=== PATIENT | female | born 1960 | race Caucasian/White ===

== ENCOUNTER 2023-03-30 12:18 | Inpatient (IN) ==
[2023-03-30] MEDS ORDERED: SODIUM CHLORIDE 0.9% 1000ML 2,000 ML IV ONE (12:47)
[2023-03-30 13:37] LABS: BUN Creatinine Ratio 19.8 (10-20); Calcium 9.1 mg/dl (8.6-10.3); Creatinine Clr Calc Pharmacy 64.8 ml/min; Est GFR (African American) 85.1 ml/min; Est GFR (Non-African American) 73.4 ml/min; Potassium 3.7 mmol/L (3.5-5.1)
[2023-03-30 13:40] LABS: Basophils # (auto) 0.03 K/uL (0-0.2); Basophils % (auto) 0.4 %; Eosinophils # (auto) 0.06 K/uL (0-0.50); Eosinophils % (auto) 0.8 %; Hematocrit (blood only) 41.9 % (37.0-47.0); Hemoglobin 14.1 g/dl (12.0-16.0); Immature Granulocytes # (auto) 0.02 K/uL (0.01-0.20); Immature Granulocytes % (auto) 0.3 %; Lymphocytes # (auto) 2.17 K/uL (1.2-3.4); Lymphocytes % (auto) 28.6 %; Mean Corpuscular Hemoglobin 29.1 pg (25.0-34.0); Mean Corpuscular Hgb Conc 33.7 g/dL (32.0-36.0); Mean Corpuscular Volume 86.6 fL (80.0-100.0); Monocytes # (auto) 0.63 K/uL (0.11-0.59); Monocytes % (auto) 8.3 %; Neutrophils # (auto) 4.69 K/uL (1.40-6.50); Neutrophils % (auto) 61.6 %; Platelet Count 206 K/uL (130-400); RDW Coefficient of Variation 13.4 % (11.5-14.5); RDW Standard Deviation 42.3 fL (36.4-46.3); Red Blood Count 4.84 M/uL (4.20-5.40)
--- NOTE | 2023-03-30 13:41 | XRay Report ---
XR chest 1V portable HISTORY: 62 years-old Female Chest pain, nonspecific COMPARISON: None TECHNIQUE: AP view of the chest FINDINGS: Cardiac mediastinal and hilar silhouettes are within normal limits. No pneumothorax, pleural effusion , airspace consolidation or pulmonary edema. Bones appear grossly intact. IMPRESSION: No acute process. ACT 112: Negative or not required by law. The above report was generated using voice recognition software. It may contain grammatical, syntax o r spelling errors. Electronically signed by: Jonnathan Valdes M.D. 03/30/2023 1:40 PM
[2023-03-30 13:42] LABS: Troponin I High Sensitivity 11.4 pg/ml (0-14)
[2023-03-30 14:08] LABS: Partial Thromboplastin Ratio 0.8; Partial Thromboplastin Time 23.8 Seconds (21.0-31.0); Prothrombin Time 11.4 Seconds (9.0-12.0)
[2023-03-30 14:15] LABS: D Dimer 5070 ug/L FEU (0-500)
[2023-03-30] MEDS ORDERED: OPTIRAY 320 500ml IV ONE (14:39)
--- NOTE | 2023-03-30 14:41 | Emergency Department Note ---
History of Present Illness General Chief Complaint: Arrhythmia/Palpitations Stated Complaint: PALPITATIONS,LUNGS SOUND "WET",DOC REF Time Seen by Provider: 03/30/23 12:38 History of Present Illness Provider Complaint: + palpitations Onset (ago): week(s) (2) Duration: + Intermittent Severity: moderate Context: + occurred during rest Arrhythmia history: no atrial fibrillation, no SVT or no on anti-coagulants Associated symptoms: + chest pain, + shortness of breath, + anxiety and + other (Patient reports she has been under a great amount of stress) Home Medications Medication Instructions Recorded Confirmed Type calcium carbonate 600 mg calcium 600 mg PO DAILY 03/30/23 03/30/23 History (1,500 mg) tablet (Calcium) cholecalciferol (vitamin D3) 25 25 mcg PO DAILY 03/30/23 03/30/23 History mcg (1,000 unit) capsule (Vitamin D3) multivitamin 1 tab PO DAILY 03/30/23 03/30/23 History Allergies Allergy/AdvReac Type Severity Reaction Status Date / Time No Known Allergies Allergy Verified 03/30/23 15:19 Past Med/Surg History Medical History No pertinent family history No pertinent past medical history Surgical History No pertinent past surgical history Social History Smoking Status: Never smoker Feels Safe at Home: Yes Physical Exam Vital Signs: Vital Signs - 24 hr 03/30/23 12:20 03/30/23 12:38 03/30/23 12:39 Temperature 36.9 C Temperature Source Temporal Artery Sc an Pulse Rate 130 H 115 H Pulse Rate [Apical ] 117 H Pulse Rate from Sp O2 Sensor Respiratory Rate 18 Respiratory Effort / Characteristics Non-Labored Sponta neous Respiratory Depth Normal Blood Pressure 187/100 H Blood Pressure [Ri ght Arm] 160/106 H Blood Pressure Willow n 129 Blood Pressure Willow n [Right Arm] 124 Blood Pressure Pos ition Sitting Pulse Oximetry 94 97 Oxygen Delivery Me thod Room Air Room Air Sepsis Recent Feve r Within 48 Hours No Sepsis New/Unexpla ined Change in Men frederic Status N/A Sepsis Action Take n by Nursing No Action Required 03/30/23 12:51 03/30/23 16:40 03/30/23 12:37 Temperature Temperature Source Pulse Rate 94 H Pulse Rate [Apical ] Pulse Rate from Sp O2 Sensor Respiratory Rate Respiratory Effort / Characteristics Respiratory Depth Blood Pressure 160/106 H Blood Pressure [Ri ght Arm] Blood Pressure Willow n 124 Blood Pressure Willow n [Right Arm] Blood Pressure Pos ition Pulse Oximetry 96 Oxygen Delivery Me thod Room Air Sepsis Recent Feve r Within 48 Hours Sepsis New/Unexpla ined Change in Men frederic Status Sepsis Action Take n by Nursing 03/30/23 12:37 03/30/23 12:40 03/30/23 12:50 Temperature Temperature Source Pulse Rate 112 H 110 H 103 H Pulse Rate [Apical ] Pulse Rate from Sp O2 Sensor 114 H 108 H 102 H Respiratory Rate 15 12 15 Respiratory Effort / Characteristics Respiratory Depth Blood Pressure Blood Pressure [Ri ght Arm] Blood Pressure Willow n Blood Pressure Willow n [Right Arm] Blood Pressure Pos ition Pulse Oximetry 98 98 98 Oxygen Delivery Me thod Sepsis Recent Feve r Within 48 Hours Sepsis New/Unexpla ined Change in Men frederic Status Sepsis Action Take n by Nursing 03/30/23 13:00 03/30/23 13:10 03/30/23 13:20 Temperature Temperature Source Pulse Rate 114 H 110 H 115 H Pulse Rate [Apical ] Pulse Rate from Sp O2 Sensor 115 H 110 H 114 H Respiratory Rate 11 L 15 23 Respiratory Effort / Characteristics Respiratory Depth Blood Pressure Blood Pressure [Ri ght Arm] Blood Pressure Willow n Blood Pressure Willow n [Right Arm] Blood Pressure Pos ition Pulse Oximetry 95 96 95 Oxygen Delivery Me thod Sepsis Recent Feve r Within 48 Hours Sepsis New/Unexpla ined Change in Men frederic Status Sepsis Action Take n by Nursing 03/30/23 13:30 03/30/23 13:40 03/30/23 13:50 Temperature Temperature Source Pulse Rate 102 H 111 H 104 H Pulse Rate [Apical ] Pulse Rate from Sp O2 Sensor 103 H 111 H 107 H Respiratory Rate 19 18 17 Respiratory Effort / Characteristics Respiratory Depth Blood Pressure Blood Pressure [Ri ght Arm] Blood Pressure Willow n Blood Pressure Willow n [Right Arm] Blood Pressure Pos ition Pulse Oximetry 95 94 95 Oxygen Delivery Me thod Sepsis Recent Feve r Within 48 Hours Sepsis New/Unexpla ined Change in Men frederic Status Sepsis Action Take n by Nursing 03/30/23 14:00 03/30/23 14:10 03/30/23 14:20 Temperature Temperature Source Pulse Rate 100 H 103 H 98 H Pulse Rate [Apical ] Pulse Rate from Sp O2 Sensor 101 H 102 H 97 H Respiratory Rate 15 15 17 Respiratory Effort / Characteristics Respiratory Depth Blood Pressure Blood Pressure [Ri ght Arm] Blood Pressure Willow n Blood Pressure Willow n [Right Arm] Blood Pressure Pos ition Pulse Oximetry 98 96 96 Oxygen Delivery Me thod Sepsis Recent Feve r Within 48 Hours Sepsis New/Unexpla ined Change in Men frederic Status Sepsis Action Take n by Nursing 03/30/23 14:30 03/30/23 14:53 03/30/23 15:00 Temperature Temperature Source Pulse Rate 99 H 112 H 113 H Pulse Rate [Apical ] Pulse Rate from Sp O2 Sensor 100 H 114 H 113 H Respiratory Rate 14 18 15 Respiratory Effort / Characteristics Respiratory Depth Blood Pressure Blood Pressure [Ri ght Arm] Blood Pressure Willow n Blood Pressure Willow n [Right Arm] Blood Pressure Pos ition Pulse Oximetry 98 98 98 Oxygen Delivery Me thod Sepsis Recent Feve r Within 48 Hours Sepsis New/Unexpla ined Change in Men frederic Status Sepsis Action Take n by Nursing 03/30/23 15:10 03/30/23 15:20 03/30/23 15:30 Temperature Temperature Source Pulse Rate 108 H 107 H 122 H Pulse Rate [Apical ] Pulse Rate from Sp O2 Sensor 109 H 106 H 108 H Respiratory Rate 14 15 22 Respiratory Effort / Characteristics Respiratory Depth Blood Pressure Blood Pressure [Ri ght Arm] Blood Pressure Willow n Blood Pressure Willow n [Right Arm] Blood Pressure Pos ition Pulse Oximetry 97 98 93 Oxygen Delivery Me thod Sepsis Recent Feve r Within 48 Hours Sepsis New/Unexpla ined Change in Men frederic Status Sepsis Action Take n by Nursing 03/30/23 15:40 03/30/23 15:50 03/30/23 16:00 Temperature Temperature Source Pulse Rate 107 H 113 H 104 H Pulse Rate [Apical ] Pulse Rate from Sp O2 Sensor 107 H 110 H 104 H Respiratory Rate 13 17 21 Respiratory Effort / Characteristics Respiratory Depth Blood Pressure Blood Pressure [Ri ght Arm] Blood Pressure Willow n Blood Pressure Willow n [Right Arm] Blood Pressure Pos ition Pulse Oximetry 96 97 97 Oxygen Delivery Me thod Sepsis Recent Feve r Within 48 Hours Sepsis New/Unexpla ined Change in Men frederic Status Sepsis Action Take n by Nursing 03/30/23 16:10 03/30/23 16:20 03/30/23 16:30 Temperature Temperature Source Pulse Rate 100 H 97 H 101 H Pulse Rate [Apical ] Pulse Rate from Sp O2 Sensor 100 H 94 H 103 H Respiratory Rate 13 16 15 Respiratory Effort / Characteristics Respiratory Depth Blood Pressure Blood Pressure [Ri ght Arm] Blood Pressure Willow n Blood Pressure Willow n [Right Arm] Blood Pressure Pos ition Pulse Oximetry 96 98 96 Oxygen Delivery Me thod Sepsis Recent Feve r Within 48 Hours Sepsis New/Unexpla ined Change in Men frederic Status Sepsis Action Take n by Nursing 03/30/23 16:40 03/30/23 16:50 03/30/23 17:00 Temperature Temperature Source Pulse Rate 99 H 96 H 103 H Pulse Rate [Apical ] Pulse Rate from Sp O2 Sensor 98 H 96 H 102 H Respiratory Rate 10 L 13 22 Respiratory Effort / Characteristics Respiratory Depth Blood Pressure Blood Pressure [Ri ght Arm] Blood Pressure Willow n Blood Pressure Willow n [Right Arm] Blood Pressure Pos ition Pulse Oximetry 97 96 98 Oxygen Delivery Me thod Sepsis Recent Feve r Within 48 Hours Sepsis New/Unexpla ined Change in Men frederic Status Sepsis Action Take n by Nursing Physical Exam: Physical Exam HENT: Exam performed. -Head: Normocephalic and atraumatic. -Right Ear: External ear normal. No mastoid erythema -Left Ear: External ear normal. No mastoid erythema EYES: Conjunctivae and EOM are normal. Right eye exhibits no discharge. Left eye exhibits no discharge. No scleral icterus. NECK: Normal range of motion. Neck supple. No JVD present. No rigidity. No tracheal deviation and normal range of motion present. CV: Tachycardic rate, regular rhythm, normal heart sounds and intact distal pulses. There is no peripheral edema. Palpable radial pulses bue. PULM/CHEST: Effort normal and breath sounds normal. No respiratory distress. No stridor. She has no wheezes. She has no rales. MUSC/SKEL: Normal range of motion. There is no peripheral edema, tenderness or deformity. LYMPH: No cervical adenopathy. NEURO: Motor and sensation grossly intact. SKIN: Skin is warm and dry. She is not diaphoretic. PSYCH: She has a normal mood and affect. Behavior is normal. Judgment and thought content normal. Course Course 1238: The patient was evaluated in room A9. A complete history and physical exam was performed Cardiac monitoring: An order was placed for continuous cardiac monitoring. The monitor shows a rate of 120 with sinus tachycardia rhythm interpreted by 1545: Patient remains tachycardic. Labs are within normal limits with exception of elevated D-dimer. CTA of the chest shows extensive bilateral pulmonary emboli. [facility]. Administered Medications Heparin Sodium/Dextrose (Heparin Sodium/Dextrose) 25,000 units in 500 mls @ 21 mls/hr IV .[id number] [facility]; Protocol Stop: 04/29/23 15:59 Last Admin: 03/30/23 16:01 Dose: 1,050 units/hr, 21 mls/hr Documented By: JEFF Co-signed By: CHAU Discontinued Medications Heparin Sodium (Porcine) (Heparin Sod (Porcine) 1000 Unit/Ml) 5,000 units IV NOW ONE Stop: 03/30/23 16:01 Last Admin: 03/30/23 16:01 Dose: 5,000 units Documented By: JEFF Co-signed By: CHAU Heparin Sodium/Dextrose (Heparin Iv Adult Wt-Based Standard With Bolus Protocol) 1 each IV Q15M [facility]; Protocol Stop: 03/30/23 16:31 Last Admin: 03/30/23 16:57 Dose: Not Given Documented By: JEFF Sodium Chloride (Nss 1000ml) 2,000 mls @ 999 mls/hr IV .Q2H1M ONE Stop: 03/30/23 14:47 Last Infusion: 03/30/23 14:52 Dose: 0 mls/hr Documented By: Admin: 03/30/23 12:51 Dose: 999 mls/hr Documented By: JEFF Ioversol (Optiray 320 500ml) 108 ml IV ONCE ONE Stop: 03/30/23 14:40 Last Admin: 03/30/23 14:40 Dose: 108 ml Documented By: OLIVIA Medical Decision Making Laboratory Data Attestation: I reviewed the patient's lab results. 03/30/23 12:35 03/30/23 12:35 Lab Results 03/30/23 03/30/23 03/30/23 Range/Units 12:35 12:35 12:35 WBC 7.60 (4.8-10.8) K/ul RBC 4.84 (4.20-5.40) M/uL Hgb 14.1 (12.0-16.0) g/dl Hct 41.9 (37.0-47.0) % MCV 86.6 (80.0-100.0) fL MCH 29.1 (25.0-34.0) pg MCHC 33.7 (32.0-36.0) g/dL RDW Std Deviation 42.3 (36.4-46.3) fL RDW Coeff of Divya 13.4 (11.5-14.5) % Plt Count 206 (130-400) K/uL MPV 10.0 (9.4-12.4) fL Immature Gran % (Auto) 0.3 % Neut % (Auto) 61.6 % Lymph % (Auto) 28.6 % [place] % (Auto) 8.3 % Eos % (Auto) 0.8 % Baso % (Auto) 0.4 % Neut # (Auto) 4.69 (1.40-6.50) K/uL Lymph # (Auto) 2.17 (1.2-3.4) K/uL [place] # (Auto) 0.63 H (0.11-0.59) K/uL Eos # (Auto) 0.06 (0-0.50) K/uL Baso # (Auto) 0.03 (0-0.2) K/uL Immature Gran # (Auto) 0.02 (0.01-0.20) K/uL PT 11.4 (9.0-12.0) Seconds INR 1.0 (0.9-1.1) APTT 23.8 (21.0-31.0) Seconds PTT Ratio 0.8 D-Dimer 5070 H* (0-500) ug/L FEU Sodium 141 (136-145) mmol/L Potassium 3.7 (3.5-5.1) mmol/L Chloride 109 H (98-107) mmol/L Carbon Dioxide 22 (21-32) mmol/L Anion Gap 10 (3-11) BUN 17 (6-23) mg/dl Creatinine 0.86 (0.6-1.2) mg/dl Est Cr Clr Drug Dosing 64.8 ml/min Est GFR ( Amer) 85.1 ml/min Est GFR (Non-Af Amer) 73.4 ml/min BUN/Creatinine Ratio 19.8 (10-20) Glucose 101 H (70-99(Fasting)) mg/dl Calcium 9.1 (8.6-10.3) mg/dl Troponin I High Sens 11.4 (0-14) pg/ml Lipase 11 (11-82) U/L SARS-CoV-2, RNA, NAAT (NEGATIVE) 03/30/23 Range/Units 16:00 WBC (4.8-10.8) K/ul RBC (4.20-5.40) M/uL Hgb (12.0-16.0) g/dl Hct (37.0-47.0) % MCV (80.0-100.0) fL MCH (25.0-34.0) pg MCHC (32.0-36.0) g/dL RDW Std Deviation (36.4-46.3) fL RDW Coeff of Divya (11.5-14.5) % Plt Count (130-400) K/uL MPV (9.4-12.4) fL Immature Gran % (Auto) % Neut % (Auto) % Lymph % (Auto) % [place] % (Auto) % Eos % (Auto) % Baso % (Auto) % Neut # (Auto) (1.40-6.50) K/uL Lymph # (Auto) (1.2-3.4) K/uL [place] # (Auto) (0.11-0.59) K/uL Eos # (Auto) (0-0.50) K/uL Baso # (Auto) (0-0.2) K/uL Immature Gran # (Auto) (0.01-0.20) K/uL PT (9.0-12.0) Seconds INR (0.9-1.1) APTT (21.0-31.0) Seconds PTT Ratio D-Dimer (0-500) ug/L FEU Sodium (136-145) mmol/L Potassium (3.5-5.1) mmol/L Chloride (98-107) mmol/L Carbon Dioxide (21-32) mmol/L Anion Gap (3-11) BUN (6-23) mg/dl Creatinine (0.6-1.2) mg/dl Est Cr Clr Drug Dosing ml/min Est GFR ( Amer) ml/min Est GFR (Non-Af Amer) ml/min BUN/Creatinine Ratio (10-20) Glucose (70-99(Fasting)) mg/dl Calcium (8.6-10.3) mg/dl Troponin I High Sens (0-14) pg/ml Lipase (11-82) U/L SARS-CoV-2, RNA, NAAT NEGATIVE (NEGATIVE) Imaging Data My Impression: Chest x-ray negative. Airway clear. No pneumothorax. No consolidation. No cardiomegaly or cephalization.. No free air under the diaphragm. No fractures of the skeletal structures. Radiologist's Impression: Chest X-Ray 03/30/23 12:47 XR chest 1V portable HISTORY: 62 years-old Female Chest pain, nonspecific COMPARISON: None TECHNIQUE: AP view of the chest FINDINGS: Cardiac mediastinal and hilar silhouettes are within normal limits. No pneumothorax, pleural effusion, airspace consolidation or pulmonary edema. Bones appear grossly intact. IMPRESSION: No acute process. ACT 112: Negative or not required by law. The above report was generated using voice recognition software. It may contain grammatical, syntax or spelling errors. Electronically signed by: Jonnathan Valdes M.D. 03/30/2023 1:40 PM Chest X-Ray 03/30/23 12:47 XR chest 1V portable HISTORY: 62 years-old Female Chest pain, nonspecific COMPARISON: None TECHNIQUE: AP view of the chest FINDINGS: Cardiac mediastinal and hilar silhouettes are within normal limits. No pneumothorax, pleural effusion, airspace consolidation or pulmonary edema. Bones appear grossly intact. IMPRESSION: No acute process. ACT 112: Negative or not required by law. The above report was generated using voice recognition software. It may contain grammatical, syntax or spelling errors. Electronically signed by: Jonnathan Valdes M.D. 03/30/2023 1:40 PM Chest CTA 03/30/23 14:21 CT ANGIOGRAPHY OF THE CHEST, PULMONARY EMBOLUS PROTOCOL CLINICAL HISTORY: Shortness of breath. Evaluate for pulmonary embolus. COMPARISON STUDY: Chest radiograph performed earlier today. TECHNIQUE: Following IV administration of 108 mL of Optiray, helical axial images of the chest were obtained utilizing the pulmonary embolus protocol. Maximal intensity projections and sagittal and coronal reformats were viewed on an independent 3D workstation. IV contrast was administered without complication. Automated exposure control was utilized for the study. A dose lowering technique was utilized adhering to the principles of ALARA. CT DOSE: 355.33 mGy.cm FINDINGS: Extensive bilateral pulmonary emboli are noted including emboli within the distal right and left pulmonary arteries. There are also emboli within the lobar and segmental vessels of both lungs. There is no definite CT evidence for right heart strain. There is no pericardial effusion. No thoracic lymphadenopathy is present. Central airways are patent. Lungs are suboptimally assessed due to respiratory motion. A 2.7 cm left upper lobe groundglass opacity on axial image 142 is noted. This contains a 6 mm nodular component which may reflect tree-in-bud nodules. Otherwise, lungs are clear. There is no pneumothorax or pleural effusion. IMPRESSION: 1. Extensive bilateral pulmonary emboli, as described above. No CT evidence for right heart strain. No pulmonary infarct. 2. 2.7 cm groundglass opacity within left upper lobe which contains a 6 mm nodular component. An infectious or inflammatory etiology is favored. A pulmonary lesion could appear similar. A follow-up chest CT in one month to ensure resolution is recommended. ACT 112: Positive. There are findings on this exam that require communication between the performing entity and the patient following Patient Test Result Information Act ([place] Act 112) guidelines. Electronically signed by: Dominic Nelson M.D. 03/30/2023 3:22 PM ECG Data Attestation: I personally reviewed and interpreted this ECG as follows: Indication: palpitations Rate (beats per minute): 118 Rhythm: sinus tachycardia Findings: no ST depression, no ST elevation or no prolonged QT Additional Comments: QRS 70 MDM Narrative 1238: The patient was evaluated in room A9. A complete history and physical exam was performed Cardiac monitoring: An order was placed for continuous cardiac monitoring. The monitor shows a rate of 120 with sinus tachycardia rhythm interpreted by me 1545: Patient remains tachycardic. Labs are within normal limits with exception of elevated D-dimer. CTA of the chest shows extensive bilateral pulmonary emboli. Patient be started on heparin [facility] Impression & Plan Pulmonary emboli Critical Care Time Critical Care Time: Yes Total Critical Care Time: 45 I have personally spent greater than 45 minutes of critical care time in the direct management of this patient. This includes bedside care, interpretation of diagnostic studies, and testing, discussion with consultants, patient, and family members, and other required patient management activities. This 45 minutes is in excess of all separately billable procedures. Discharge Plan Visit Data Chief Complaint: Arrhythmia/Palpitations Stated Complaint: PALPITATIONS,LUNGS SOUND "WET",DOC REF ED Provider: Goyo Seay Discharge Problem: Pulmonary emboli Patient Disposition: Admitted As Inpatient Forms Stand Alone Forms: [facility] Prescriptions Prescriptions: No Action multivitamin Tablet 1 tab PO DAILY calcium carbonate [Calcium 600] 600 mg calcium (1,500 mg) Tablet 600 mg PO DAILY cholecalciferol (vitamin D3) [Vitamin D3] 25 mcg (1,000 unit) Capsule 25 mcg PO DAILY Referrals Referrals: María Martinez MD [Primary Care Provider] -
--- NOTE | 2023-03-30 15:24 | CT Scan Report ---
CT ANGIOGRAPHY OF THE CHEST, PULMONARY EMBOLUS PROTOCOL CLINICAL HISTORY: Shortness of breath. Evaluate for pulmonary embolus. COMPARISON STUDY: Chest radiograph performed earlier today. TECHNIQUE: Following IV administration of 108 mL of Optiray, helical axial images of the chest were o btained utilizing the pulmonary embolus protocol. Maximal intensity projections and sagittal and cor onal reformats were viewed on an independent 3D workstation. IV contrast was administered without co mplication. Automated exposure control was utilized for the study. A dose lowering technique was ut ilized adhering to the principles of ALARA. CT DOSE: 355.33 mGy.cm FINDINGS: Extensive bilateral pulmonary emboli are noted including emboli within the distal right an d left pulmonary arteries. There are also emboli within the lobar and segmental vessels of both lungs . There is no definite CT evidence for right heart strain. There is no pericardial effusion. No thora cic lymphadenopathy is present. Central airways are patent. Lungs are suboptimally assessed due to re spiratory motion. A 2.7 cm left upper lobe groundglass opacity on axial image 142 is noted. This cont ains a 6 mm nodular component which may reflect tree-in-bud nodules. Otherwise, lungs are clear. Ther e is no pneumothorax or pleural effusion. IMPRESSION: 1. Extensive bilateral pulmonary emboli, as described above. No CT evidence for right heart strain. N o pulmonary infarct. 2. 2.7 cm groundglass opacity within left upper lobe which contains a 6 mm nodular component. An infe ctious or inflammatory etiology is favored. A pulmonary lesion could appear similar. A follow-up ches t CT in one month to ensure resolution is recommended. ACT 112: Positive. There are findings on this exam that require communication between the performing entity and the patient following Patient Test Result Information Act ([place] Act 112) guidelines. Electronically signed by: Dominic Nelson M.D. 03/30/2023 3:22 PM
[2023-03-30] MEDS ORDERED: Heparin IV Adult Wt-Based Standard WITH Bolus Protocol IV STA (15:45)
[2023-03-30] MEDS ORDERED: HEPARIN SOD (PORCINE) 1000 UNIT/ML IV ONE ×2 (16:00)
[2023-03-30] MEDS ORDERED: HEPARIN SODIUM/DEXTROSE 25,000 UNITS/500 ML BAG IV SCH (16:00)
--- NOTE | 2023-03-30 16:49 | History & Physical Report ---
Date of Service March 30, 2023 Assessment & Plan (1) Pulmonary emboli: Plan: Possibly provoked with recent long haul journeys although is US venous doppler negative unlikely exacerbated by this. IV haprin standard IV bolus and drip. Duration at least 6 months Consider hypercoagulable workup pending US venous doppler if thought to be unprovoked (2) Abnormal CT scan, chest: Plan: 2.7 cm groundglass opacity within left upper lobe which contains a 6 mm nodular component. Repeat CT chest in 1 month recommended for resolution. However most likely downstream effect of pulonary embolism Procalcitonin negative Plan VTE Prophylaxis - IV heparin Diet - regular Disposition - med/tele Admission and Anticipated Discharge Date Admission Date: March 30, 2023 History of Present Illness Chief Complaint: Shortness of breath, tachycardia Primary Care Provider: María Martinez MD Deja Diez is a 62 year old female who presents to the ER on advice of her PCP due to heart racing and shortness of breath. She reports shortness of breath on exertion for the last 2 weeks especially but with hindsight she believes this may have been going on for longer. No chest pain although she notes maybe some discomfort no worse on inspiration. Associated nausea. No diaphoresis. Palpitations for the last 2 weeks. No orthopnea, PND, presyncope, fever, chills, nasal congestion, sinus pain, cough. In the ER she was noted to have an elevated d-dimer and subsequent CT for PE confirmed bilateral pulmonary emboli. She has no personal or family history of pulmonary emboli or clotting disorders. No calf pain. No recent surgeries. She does note a [address] car journey to [place] about 8 weeks ago with 1 week in between. Since then she has also been driving to [place] for the last 3-4 weekends with 3 days in between journeys. No recent COVID infection. Allergies Allergy/AdvReac Type Severity Reaction Status Date / Time No Known Allergies Allergy Verified 03/30/23 15:19 Home Medications Medication Instructions Recorded Confirmed Type calcium carbonate 600 mg calcium 600 mg PO DAILY 03/30/23 03/30/23 History (1,500 mg) tablet (Calcium) cholecalciferol (vitamin D3) 25 25 mcg PO DAILY 03/30/23 03/30/23 History mcg (1,000 unit) capsule (Vitamin D3) multivitamin 1 tab PO DAILY 03/30/23 03/30/23 History Past Med/Surg History Medical History No pertinent family history No pertinent past medical history Surgical History No pertinent past surgical history Social History Smoking Status: Never smoker Hx Alcohol Use: Yes Hx Substance Use: No Preferred Language: Armenian Communication Ability: Effective 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 Beliefs That Will Affect Care: None Current Living Situation: Spouse Feels Safe at Home: Yes Safety Concerns: Feels Safe At This Time Assistive Devices: Glasses Review of Systems Review of Systems: All systems reviewed & are unremarkable except as noted in HPI & below Physical Exam Constitutional: WD/WN, vitals as above Eyes: + anicteric sclerae; normal pupil size ENMT: external ear and nose normal, oropharynx normal Neck: trachea midline, no thyromegaly Respiratory: normal respiratory effort, lungs clear to auscultation Cardiovascular: RRR, no murmur, no edema Gastrointestinal (Abdomen): normal bowel sounds, soft, nontender, no hepatosplenomegaly Musculoskeletal: no cyanosis or clubbing, extremities motor strength 5/5 Skin: no rashes, warm and dry Neurologic: moves all extremities and awake; no focal motor deficits and not confused Psychiatric: A+Ox3, euthymic affect Genitourinary: no CVA tenderness Results & Data Results & Data Vital Signs (Past 12 Hours) Vital Signs Temp Pulse Pulse Resp BP BP Pulse Ox 03/30/23 16:40 94 H 03/30/23 12:51 96 03/30/23 12:39 117 H 160/106 H 97 03/30/23 12:38 115 H 03/30/23 12:20 36.9 C 130 H 18 187/100 H 94 O2 Del Method 03/30/23 16:40 03/30/23 12:51 Room Air 03/30/23 12:39 Room Air 03/30/23 12:38 03/30/23 12:20 Room Air Laboratory Results Abnormal lab results 03/30/23 03/30/23 03/30/23 Range/Units 12:35 12:35 12:35 [place] # (Auto) 0.63 H (0.11-0.59) K/uL D-Dimer 5070 H* (0-500) ug/L FEU Chloride 109 H (98-107) mmol/L Glucose 101 H (70-99(Fasting)) mg/dl Diagnostic Findings XR chest 1V portable HISTORY: 62 years-old Female Chest pain, nonspecific COMPARISON: None TECHNIQUE: AP view of the chest FINDINGS: Cardiac mediastinal and hilar silhouettes are within normal limits. No pneumothorax, pleural effusion, airspace consolidation or pulmonary edema. Bones appear grossly intact. IMPRESSION: No acute process. Medications Administered ER Medications Given: NSS 1L bolus (2nd L discontinued) Heparin Standard bolus and drip ECG Rate (beats per minute): 118 Rhythm: sinus tachycardia Findings: no acute ischemic change Comparison ECG Date: no prior available Code Status & VTE Plan Code Status Full VTE Prophylaxis Plan VTE Prophylaxis will be ordered: Yes PG Care Time/CCT Total # of Minutes Spent Total Time Spent with Patient: Total time spent is greater than 50% in coordination of care (as documented) at patient's floor/unit and/or counseling patient: Coding Level of Care Code 27400 INT INP/OBS CARE 2MIN Diagnoses Pulmonary emboli I26.99 Acute cor pulmonale presence: without acute cor pulmonale Chronicity: acute Pulmonary embolism type: unspecified Abnormal CT scan, chest R93.89 (1) Pulmonary emboli Acute cor pulmonale presence: without acute cor pulmonale Chronicity: acute Pulmonary embolism type: unspecified Qualified Code(s): I26.99 - Other pulmo nary embolism without acute cor pulmonale
[2023-03-30] MEDS: Heparin IV Adult Wt-Based Standard WITH Bolus Protocol IV SCH ×2 (16:57→18:03)
[2023-03-30] MEDS ORDERED: ONDANSETRON INJ 2 MG/ML 2 ML VIAL IV PRN (18:43)
[2023-03-30] MEDS ORDERED: ACETAMINOPHEN 325 MG TAB PO PRN (18:43)
--- NOTE | 2023-03-30 21:14 | Ultrasound Report ---
BILATERAL LOWER EXTREMITY VENOUS DOPPLER CLINICAL HISTORY: Pulmonary emboli, ?DVT to determine if provoked/un COMPARISON STUDY: No previous studies for comparison. TECHNIQUE: Sonography of the deep venous system of the bilateral lower extremities was performed. Co mpression and augmentation were evaluated. FINDINGS: There is no deep venous thrombus within the right lower extremity. Note is made of nonoccl usive deep venous thrombus within the left popliteal vein. No additional sites of deep venous thrombu s are present. IMPRESSION: Deep venous thrombus within the left popliteal vein. No additional sites of deep venous t hrombus within the lower chest demonstrate. ACT 112: Negative or not required by law. Electronically signed by: Dominic Nelson M.D. 03/30/2023 9:12 PM
[2023-03-30 22:35] LABS: Partial Thromboplastin Ratio 2.2
[2023-03-30 23:01] LABS: Partial Thromboplastin Time 61.6 Seconds (21.0-31.0)
[2023-03-31 07:08] LABS: Basophils # (auto) 0.03 K/uL (0-0.2); Basophils % (auto) 0.5 %; Eosinophils # (auto) 0.09 K/uL (0-0.50); Eosinophils % (auto) 1.4 %; Hematocrit (blood only) 42.3 % (37.0-47.0); Hemoglobin 14.2 g/dl (12.0-16.0); Immature Granulocytes # (auto) 0.02 K/uL (0.01-0.20); Immature Granulocytes % (auto) 0.3 %; Lymphocytes # (auto) 2.57 K/uL (1.2-3.4); Lymphocytes % (auto) 40.7 %; Mean Corpuscular Hemoglobin 29.1 pg (25.0-34.0); Mean Corpuscular Hgb Conc 33.6 g/dL (32.0-36.0); Mean Corpuscular Volume 86.7 fL (80.0-100.0); Mean Platelet Volume 9.6 fL (9.4-12.4); Monocytes # (auto) 0.47 K/uL (0.11-0.59); Monocytes % (auto) 7.4 %; Neutrophils # (auto) 3.13 K/uL (1.40-6.50); Neutrophils % (auto) 49.7 %; Platelet Count 177 K/uL (130-400); RDW Coefficient of Variation 13.5 % (11.5-14.5); RDW Standard Deviation 42.8 fL (36.4-46.3); Red Blood Count 4.88 M/uL (4.20-5.40); White Blood Count 6.31 K/ul (4.8-10.8)
[2023-03-31 07:29] LABS: BUN Creatinine Ratio 18.2 (10-20); Calcium 8.9 mg/dl (8.6-10.3); Creatinine Clr Calc Pharmacy 72.4 ml/min; Est GFR (African American) 97.3 ml/min; Est GFR (Non-African American) 83.9 ml/min; Potassium 4.3 mmol/L (3.5-5.1)
[2023-03-31 07:57] LABS: Partial Thromboplastin Time 56.6 Seconds (21.0-31.0)
--- NOTE | 2023-03-31 08:05 | Hospitalist Progress Note ---
Date of Service March 31, 2023 Assessment & Plan (1) Pulmonary emboli: Plan: Possibly provoked with recent long car trips IV heprin standard IV bolus and drip. Once tachycardia resolves consider transition Eliquis therapy Duration at least 6 months (2) Abnormal CT scan, chest: Plan: 2.7 cm groundglass opacity within left upper lobe which contains a 6 mm nodular component. Repeat CT chest in 1 month recommended for resolution. However most likely downstream effect of pulonary embolism Procalcitonin negative Plan VTE Prophylaxis - IV heparin Diet - regular Disposition - med/tele Admission and Anticipated Discharge Date Admission Date: March 30, 2023 Subjective Patient admitted admitted with concern for provoked DVT/PE started on heparin drip., Typically takes no medications. Small groundglass changes noted on CTA of chest patient has never been a smoker Results & Data Results & Data Vital Signs (Past 12 Hours) Vital Signs Temp Pulse Pulse Resp BP Pulse Ox O2 Del Method 03/31/23 07:47 97.9 F 94 H 18 135/86 98 Room Air 03/31/23 02:16 97.7 F 96 H 20 127/81 95 Room Air 03/30/23 22:00 97 H 03/30/23 22:46 97.5 F L 81 18 151/87 H 97 Room Air 03/30/23 22:00 Room Air PG Care Time/CCT Total # of Minutes Spent Total Time Spent with Patient: Total time spent is greater than 50% in coordination of care (as documented) at patient's floor/unit and/or counseling patient: Coding Diagnoses Pulmonary emboli I26.99 Acute cor pulmonale presence: without acute cor pulmonale Chronicity: acute Pulmonary embolism type: unspecified Abnormal CT scan, chest R93.89 (1) Pulmonary emboli Acute cor pulmonale presence: without acute cor pulmonale Chronicity: acute Pulmonary embolism type: unspecified Qualified Code(s): I26.99 - Other pulmonary embolism without acute cor pulmonale
[2023-03-31 11:38] VITALS: TEMP 98.2; O2SAT 97
[2023-03-31] MEDS ORDERED: HEPARIN STOP ORDER ONE (12:45)
[2023-03-31] MEDS ORDERED: APIXABAN 5 MG TABLET PO ONE (12:45)
[2023-03-31] MEDS: Heparin IV Adult Wt-Based Standard WITH Bolus Protocol IV SCH (13:13)
[2023-03-31 14:47] VITALS: BP 135/86
[2023-03-31 15:36] VITALS: PULSE 106
--- NOTE | 2023-03-31 18:01 | Discharge Summary ---
Date of Service March 31, 2023 Admission HPI Per Admitting Provider Deja Diez is a 62 year old female who presents to the ER on advice of her PCP due to heart racing and shortness of breath. She reports shortness of breath on exertion for the last 2 weeks especially but with hindsight she believes this may have been going on for longer. No chest pain although she notes maybe some discomfort no worse on inspiration. Associated nausea. No diaphoresis. Palpitations for the last 2 weeks. No orthopnea, PND, presyncope, fever, chills, nasal congestion, sinus pain, cough. In the ER she was noted to have an elevated d-dimer and subsequent CT for PE confirmed bilateral pulmonary emboli. She has no personal or family history of pulmonary emboli or clotting disorders. No calf pain. No recent surgeries. She does note a [address] car journey to [place] about 8 weeks ago with 1 w [place] in between. Since then she has also been driving to [place] for the last 3- 4 weekends with 3 days in between journeys. No recent COVID infection. Principal Diagnosis Pulmonary embolism and deep venous thrombosis Pulmonary nodule recommend follow-up in 1 month Discharge Exam Patient is awake and alert she has no shortness of breath she has no leg discomfort Discharge Data Allergies Allergy/AdvReac Type Severity Reaction Status Date / Time No Known Allergies Allergy Verified 03/30/23 15:19 Consultations 03/30/23 15:46 ED Decision to Admit Stat Ordered Studies 03/30/23 14:21 CT angio chest PE protocol Stat 03/30/23 17:29 US venous doppler LE Stat Hospital Course (1) Pulmonary emboli: Possibly provoked with recent long car trips IV heprin standard IV bolus and drip. transition Eliquis therapy Duration at least 6 months (2) Abnormal CT scan, chest: 2.7 cm groundglass opacity within left upper lobe which contains a 6 mm nodular component. Repeat CT chest in 1 month recommended for resolution. However most likely downstream effect of pulonary embolism Procalcitonin negative Total Time Total Time Spent Total Time Spent (In Minutes): It required greater than 30 minutes to prepare this patient for discharge Discharge Plan Discharge Items Patient Disposition: Home - Self-Care Reason For Visit: PULMONARY EMBOLI Discharge Diagnosis: pulmonary embolism Activity: Per Instructions section Non-emergency contact: Primary Care Provider Call non-emergency contact if: your symptoms worsen Follow-up/Referrals: María Martinez MD [Primary Care Provider] - 04/03/23 2:05 pm (with Kristie Werner ) Diet: Regular Addtl Attending Provider Instructions: Medication Instructions: Your condition is typically treated with an anticoagulant. Anticoagulants will thin your blood to help prevent new clots. * You should take her medication exactly as directed. * Never skip a dose. * Never take a double dose. If you miss a dose, take it as soon as you remember. Call your Primary Care doctor if you experience any of the following: * Swelling or Pain in your leg * Sudden, continuous pain deep in a muscle * Pain that worsens when you are active or when you stand still for a long time * Chest Pain * Sudden Shortness of Breath * Rapid or pounding heart beat * Fainting * Dizziness * Cough with blood or bloody sputum * Sweating more than normal * Bruises * Heavy or uncontrolled bleeding * Blood in your urine, stool or vomit * Black or tarry stools Caring for Your Self at Home: * Avoid sitting, standing or lying down for long periods without moving your legs and feet * When traveling by car, stop to get out and move around at least once every 3 hours * On long airplane, train or bus rides, get up and move around when possible * If you can't get up, wiggle your toes and tighten your calves to keep your blood moving Follow Up: It is important for you to keep your follow up appointments with your medical provider. Pending Studies at Discharge: No Stand-Alone Forms: My [facility], Smoking Cessation Medications and DC Order Prescriptions: New Eliquis 5 mg (74 tabs) tablets,dose pack 5 mg PO BID Qty: 74 5RF Continued multivitamin Tablet 1 tab PO DAILY calcium carbonate [Calcium 600] 600 mg calcium (1,500 mg) Tablet 600 mg PO DAILY cholecalciferol (vitamin D3) [Vitamin D3] 25 mcg (1,000 unit) Capsule 25 mcg PO DAILY Discharge Orders: Discharge Order (Routine); Ordered 03/31/23 Ordered By: Chuckie Munguia Admission Data Admit Date/Time: 03/30/23 17:34 Attending Provider: Chuckie Munguia Admit Provider: Omar Davis Primary Care Provider: María Martinez Other Providers: Omar Davis Other Interventions: Discharge Summary Assessment (RN) Last Done: 03/31/23 14:46 Coding Level of Care Code 32957 INP/OBS DISCH >30 MIN Diagnoses Pulmonary emboli I26.99 Acute cor pulmonale presence: without acute cor pulmonale Chronicity: acute Pulmonary embolism type: unspecified Abnormal CT scan, chest R93.89
[2023-03-31] MEDS ORDERED: APIXABAN 5 MG TABLET PO SCH (21:00)
--- NOTE | 2023-03-31 22:18 | Electrocardiogram Report ---
Test Reason : Blood Pressure : / mmHG Vent. Rate : 118 BPM Atrial Rate : 118 BPM P-R Int : 146 ms QRS Dur : 070 ms QT Int : 336 ms P-R-T Axes : 061 -09 046 degrees QTc Int : 470 ms Sinus tachycardia Otherwise normal ECG No previous ECGs available Confirmed by Omar Chavez ([id number]) on 03/31/2023 10:18:16 PM Referred By: Confirmed By:Omar Chavez
== END 2023-03-31 16:00 | disposition home or self-care (01) | DRG 299 ==
LOC: ED 12:18 → SUATTDRO 17:34 → 2W 17:34